=== PATIENT | female | born 1980 | race Hispanic/Latino ===

== ENCOUNTER → 2024-05-30 | Day surgery (SDC) | payer BC ==
[~2024-05-30] MED LIST: FENTANYL CITRATE/PF 100MCG/2 ML INJ ONE; LIDOCAINE HCL 2% LOCAL INJ 5 ML SDV VIAL INJ ONE; MIDAZOLAM HCL 2 MG/2 ML VIAL ONE; PROPOFOL IV EMULSION 10 MG/ML 20 ML VIAL ONE
[2024-05-30] MEDS: LACTATED RINGER'S 1,000 ML ONE (09:25)
[2024-05-30 10:58] VITALS: TEMP 97.1
[2024-05-30 11:20] VITALS: BP 127/85; PULSE 53; RESP 18; O2SAT 100
== END | disposition home or self-care (01) ==
LOC: OR 08:02
PROVIDERS: ATTEND Internal Medicine Gastroenterology
DX: K29.50 Unspecified chronic gastritis without bleeding (principal); K29.80 Duodenitis without bleeding; K44.9 Diaphragmatic hernia without obstruction or gangrene; K59.00 Constipation, unspecified; Z79.1 Long term (current) use of non-steroidal anti-inflammatories (NSAID); Z68.35 Body mass index [BMI] 35.0-35.9, adult; Z80.0 Family history of malignant neoplasm of digestive organs
CPT/HCPCS: 43239; 81025; J2003; J2250; J2704; J3010; J7121